=== PATIENT | female | born 1970 | race Caucasian/White ===

== ENCOUNTER → 2020-12-10 13:32 | Outpatient (BNVA) | payer BC, SELFPAY | PROVIDERS: PCP Nurse Practitioner Family; Visit Provider Nurse Practitioner Family | DX: J02.9 Acute pharyngitis, unspecified (principal) | CPT/HCPCS: 87880 ==

== ENCOUNTER → 2021-03-10 11:14 | Outpatient (BNVA) | payer BC, SELFPAY | PROVIDERS: PCP Nurse Practitioner Family; Visit Provider Nurse Practitioner Family | DX: I10 Essential (primary) hypertension (principal); R53.83 Other fatigue; R07.9 Chest pain, unspecified; R05 Cough | CPT/HCPCS: 80053; 84443 ==

== ENCOUNTER → 2021-04-17 10:47 | Outpatient (BNVA) | payer BC, SELFPAY | PROVIDERS: PCP Nurse Practitioner Family; Visit Provider Nurse Practitioner Family | DX: R05 Cough (principal); Z20.822 Contact with and (suspected) exposure to COVID-19 | CPT/HCPCS: 87635 ==

== ENCOUNTER 2021-08-31 12:07 | Outpatient (CLI) | payer SELFPAY ==
[2021-08-31 08:56] VITALS: BMI 20.9
[2021-08-31 13:50] VITALS: BP 110/70; PULSE 81; RESP 20; TEMP 36.7; O2SAT 96
== END 2021-08-31 12:08 | disposition home or self-care (01) ==
LOC: OPS 12:11
PROVIDERS: PCP Nurse Practitioner Family; Visit Provider Nurse Practitioner Family
DX: U07.1 COVID-19 (principal)
CPT/HCPCS: 96365